=== PATIENT | female | born 1985 | race Caucasian/White ===

== ENCOUNTER 2020-07-06 09:07 | Outpatient (CLI) | payer BC, OTHER | END 2020-07-06 20:31 | disposition home or self-care (01) | LOC: SRD 09:07 | PROVIDERS: ATTEND Specialist | DX: N97.9 Female infertility, unspecified (principal); N73.6 Female pelvic peritoneal adhesions (postinfective) | CPT/HCPCS: 58340; 74740; C1751; Q9967 ==